=== PATIENT | male | born 1955 | race Caucasian/White ===

== ENCOUNTER 2024-11-15 11:10 | Observation (INO) ==
[2024-11-15] MEDS ORDERED: DILAUDID INJ IVP PRN (14:48)
[2024-11-15 15:31] LABS: BASOPHILS % (AUTO) 0.8 % (0.2-1.0); EOSINOPHILS # (AUTO) 0.2 x10^3/uL (0.0-0.2); EOSINOPHILS % (AUTO) 3.9 % (0.9-2.9); HEMATOCRIT 37.1 % (42.0-54.0); HEMOGLOBIN 12.9 g/dL (13.5-18.0); LYMPHOCYTES # (AUTO) 0.8 X10^3/uL (1.3-2.9); LYMPHOCYTES % (AUTO) 15.6 % (21.0-51.0); MEAN CORPUSCULAR HEMOGLOBIN 29.1 pg (27.0-34.0); MEAN CORPUSCULAR HGB CONC 34.9 g/dL (33.0-35.0); MEAN CORPUSCULAR VOLUME 83.3 fL (80.0-100.0); MEAN PLATELET VOLUME 6.5 fL (7.4-11.0); MONOCYTES # (AUTO) 0.4 x10^3/uL (0.3-0.8); MONOCYTES % (AUTO) 7.3 % (0.0-13.0); NEUTROPHILS # (AUTO) 3.9 x10^3/uL (2.2-4.8); NEUTROPHILS % (AUTO) 72.4 % (42.0-75.0); PLATELET COUNT 211 X10^3/uL (150.0-450.0); RED BLOOD COUNT 4.45 X10^6/uL (4.7-6.0); RED CELL DISTRIBUTION WIDTH 14.7 % (11.6-16.5); WHITE BLOOD COUNT 5.4 X10^3/uL (3.6-10.0)
[2024-11-15 15:37] LABS: ALANINE AMINOTRANSFERASE 31 Units/L (12-78); ALBUMIN 3.6 g/dL (3.4-5.0); ALKALINE PHOSPHATASE 99 Units/L (46-116); ASPARTATE AMINO TRANSFERASE 19 Units/L (15-37); BLOOD UREA NITROGEN 37 mg/dL (7-18); CALCIUM 9.3 mg/dL (8.5-10.1); CARBON DIOXIDE 34.1 mmol/L (21-32); CHLORIDE 100 mmol/L (98-107); COR NA(FOR HYPERGLY) 142 mmol/L (136-145); CREATININE 1.97 mg/dL (0.70-1.30); GLUCOSE 244 mg/dL (65-99); POTASSIUM 3.4 mmol/L (3.5-5.1); SODIUM 139 mmol/L (136-145); TOTAL PROTEIN 7.7 g/dL (6.4-8.2); eGFR NON BLACK RACES 36 (>60)
[2024-11-15] MEDS: LOVENOX INJ 120 MG SYR SC SCH (16:16)
[2024-11-15] MEDS: LR 1,000 ML IV 1,000 ML IV SCH (16:17)
[2024-11-15] MEDS ORDERED: CONSULT PHARMACY - POTASSIUM & MAGNESIUM XX SCH (17:00)
[2024-11-15] MEDS: K-RIDER 10 MEQ/100 ML WATER 10 MEQ/100 ML BAG IV NR (18:40)
[2024-11-15] MEDS: ZOSYN VIAL 3.375 GRAMS 3.375 G in NS 100 ML IV 100 ML IV SCH (18:45)
[2024-11-15] MEDS: SNACK - Diabetic Appropriate PO SCH (21:00)
[2024-11-15] MEDS: NovoLIN R (or HumuLIN R) SUBCUT PRN (21:40)
[2024-11-15] MEDS ORDERED: NovoLIN R (or HumuLIN R) SUBCUT PRN (23:23)
--- NOTE | 2024-11-15 23:23 | DR.H&P ---
H&P History & Physical for Day of: H&P Date: 11/15/24 Chief Complaint Chief Complaint: Obese 69-year-old diabetic with history of coronary bypass grafting within the last several years. Also with history of multiple coronary stents. No history of SC. Patient also has had arterial stenting of the right extremity in the past. Now has nonhealing wound to the left lateral foot, probable diabetic ulcer versus ischemic ulcer. Has had a left small toe amputation. Question of osteomyelitis involving the left foot. History of Present Illness History of Present Illness: See above Past Medical History Past Medical History: Anxiety, Coronary Artery Disease (Status post CABG and multiple coronary stents), Diabetes, Dyslipidemia, GERD and Hypertension Past Surgical History Surgical History: Appendectomy and CABG/Valve Surgery (CABG x 3, multiple coronary stents, stenting of arteries right leg, left small toe ray amputation) Family History Family Medical History: Diabetes Mellitus and Cancer Social History Does patient currently use any type of tobacco product: No Type of Tobacco Use: None Does any household member use tobacco: No Alcohol Use: None Drug Use: None Medications Home Medications: see list Allergies Allergies Allergy/AdvReac Type Severity Reaction Status Date / Time clindamycin [From Cleocin] Allergy Severe RASH Verified 11/15/24 15:01 Labs 11/15/24 15:14 11/15/24 15:14 Labs: Laboratory WBC 5.4 X10^3/uL (3.6-10.0) 11/15/24 15:14 RBC 4.45 X10^6/uL (4.7-6.0) L 11/15/24 15:14 Hgb 12.9 g/dL (13.5-18.0) L 11/15/24 15:14 Hct 37.1 % (42.0-54.0) L 11/15/24 15:14 MCV 83.3 fL (80.0-100.0) 11/15/24 15:14 MCH 29.1 pg (27.0-34.0) 11/15/24 15:14 MCHC 34.9 g/dL (33.0-35.0) 11/15/24 15:14 RDW 14.7 % (11.6-16.5) 11/15/24 15:14 Plt Count 211 X10^3/uL (150.0-450.0) 11/15/24 15:14 MPV 6.5 fL (7.4-11.0) L 11/15/24 15:14 Neut % (Auto) 72.4 % (42.0-75.0) 11/15/24 15:14 Lymph % (Auto) 15.6 % (21.0-51.0) L 11/15/24 15:14 [place] % (Auto) 7.3 % (0.0-13.0) 11/15/24 15:14 Eos % (Auto) 3.9 % (0.9-2.9) H 11/15/24 15:14 Baso % (Auto) 0.8 % (0.2-1.0) 11/15/24 15:14 Neut # (Auto) 3.9 x10^3/uL (2.2-4.8) 11/15/24 15:14 Lymph # (Auto) 0.8 X10^3/uL (1.3-2.9) L 11/15/24 15:14 [place] # (Auto) 0.4 x10^3/uL (0.3-0.8) 11/15/24 15:14 Eos # (Auto) 0.2 x10^3/uL (0.0-0.2) 11/15/24 15:14 Baso # (Auto) 0.0 X10^3/uL (0.0-0.1) 11/15/24 15:14 Absolute Nucleated RBC 0.1 /100WBC 11/15/24 15:14 Sodium 139 mmol/L (136-145) 11/15/24 15:14 Corrected Sodium 142 mmol/L (136-145) 11/15/24 15:14 Potassium 3.4 mmol/L (3.5-5.1) L 11/15/24 15:14 Chloride 100 mmol/L (98-107) 11/15/24 15:14 Carbon Dioxide 34.1 mmol/L (21-32) H 11/15/24 15:14 BUN 37 mg/dL (7-18) H 11/15/24 15:14 Creatinine 1.97 mg/dL (0.70-1.30) H 11/15/24 15:14 Est GFR (MDRD) Af Amer 43 (>60) L 11/15/24 15:14 Est GFR (MDRD) Non-Af 36 (>60) L 11/15/24 15:14 Glucose 244 mg/dL (65-99) H 11/15/24 15:14 Calcium 9.3 mg/dL (8.5-10.1) 11/15/24 15:14 Corrected Calcium TNP 11/15/24 15:14 Magnesium 2.1 mg/dL (2.0-2.9) 11/15/24 15:14 Total Bilirubin 0.40 mg/dL (0.2-1.0) 11/15/24 15:14 AST 19 Units/L (15-37) 11/15/24 15:14 ALT 31 Units/L (12-78) 11/15/24 15:14 Alkaline Phosphatase 99 Units/L (46-116) 11/15/24 15:14 Total Protein 7.7 g/dL (6.4-8.2) 11/15/24 15:14 Albumin 3.6 g/dL (3.4-5.0) 11/15/24 15:14 Globulin 4.1 g/dL (2.5-4.5) 11/15/24 15:14 Albumin/Globulin Ratio 0.9 Ratio (1.1-2.1) L 11/15/24 15:14 Review of Systems Constitutional: See HPI Eyes: No Symptoms Reported ENT: No Symptoms Reported Respiratory: No Symptoms Reported Cardiovascular: No Symptoms Reported Gastrointestinal: No Symptoms Reported Genitourinary: No Symptoms Reported Musculoskeletal: See HPI Skin: No Symptoms Reported Neurological: No Symptoms Reported Physical Exam Vital Signs: Temperature equals 97.4, pulse 83, respiratory rate 18, O2 saturation 93%, blood pressure 139/72 Oriented: Time, Person and Place; negative Normal Eyes: Normal Ear: Normal Nose: Normal Throat: Normal Respiratory: Clear Throughout Cardiovascular: Normal : Normal Auscultation: Bowel Sounds: Normal Palpation: Normal Tenderness: Normal Skin: Wound (3 cm diameter wound to left lateral foot. Has had left small toe amputated in the past base of this is healed. Question of osteomyelitis.) Musculoskeletal: Foot (As above. Significant swelling lower extremity, palpable distal pulses of the right ankle. No palpable distal pulses of the left foot.) Psychiatric: Anxiety Mood Description: Calm Affect: Anxious Speech Pattern: Clear and Appropriate Assessment/Plan (1) Atherosclerosis of [place] arteries of extremities with rest pain, left leg: Status: Acute Plan: Will hydrate tonight as creatinine is elevated. Try to do CT angiogram in the morning. N.p.o. after midnight (2) Atherosclerotic heart disease of [place] coronary artery without angina pectoris: Status: Acute Plan: Home medications (3) Essential (primary) hypertension: Status: Acute Plan: Home medications (4) Gastro-esophageal reflux disease without esophagitis: Status: Acute Plan: Home medications (5) Type 2 diabetes mellitus without complications: Status: Acute Plan: 1800-calorie ADA diet, sliding scale insulin. N.p.o. after midnight (6) Osteomyelitis of left foot: Status: Acute Plan: Opal Polisher ordered MRI of the left foot for tomorrow morning Review H&P Reviewed: Yes Patient was examined?: Yes
[2024-11-15] MEDS ORDERED: ZOFRAN TAB 4 MG PO PRN (23:27)
--- NOTE | 2024-11-16 06:16 | RAD ---
EXAM: CHEST, 1 VIEW HISTORY: Pre-op ischemic left leg with non-healing wound; COMPARISON: None FINDINGS: The cardiomediastinal silhouette is prominent. Post sternotomy changes. Hypoventilatory exam without acute airspace disease. No pneumothorax or effusion. No acute osseous abnormality. IMPRESSION: No acute cardiopulmonary disease. THIS IS AN ELECTRONICALLY VERIFIED FINAL REPORT 11/16/2024 6:13 AM - Electronically signed by Andrew Christy MD
[2024-11-16] MEDS ORDERED: CONSULT PHARMACY - POTASSIUM & MAGNESIUM XX SCH (08:00)
[2024-11-16 08:42] LABS: CALCIUM 9.2 mg/dL (8.5-10.1); CREATININE 1.61 mg/dL (0.70-1.30); POTASSIUM 3.7 mmol/L (3.5-5.1)
[2024-11-16] MEDS: NORVASC TAB 5 MG PO SCH (09:56)
[2024-11-16] MEDS: KLONOPIN TAB 0.5 MG PO SCH (09:56)
[2024-11-16] MEDS: LOVENOX INJ 120 MG SYR SC SCH (09:56)
[2024-11-16] MEDS: K-RIDER 10 MEQ/100 ML WATER 10 MEQ/100 ML BAG IV ONE (09:56)
[2024-11-16] MEDS: PROTONIX TAB 40 MG PO SCH (09:57)
--- NOTE | 2024-11-16 12:11 | EKG ---
Test Reason : preop Blood Pressure : */* mmHG Vent. Rate : 86 BPM Atrial Rate : * BPM P-R Int : * ms QRS Dur : 90 ms QT Int : 364 ms P-R-T Axes : * -12 83 degrees QTc Int : 435 ms Accelerated Junctional rhythm Cannot rule out Anterior infarct , age undetermined Nonspecific T wave abnormality Abnormal ECG No previous ECGs available Confirmed by Diallo Aquino MD ([id number]) on 11/16/2024 2:09:41 PM Referred By: Confirmed By: Diallo Aquino MD
[2024-11-16] MEDS: VERSED ONE (12:34)
[2024-11-16] MEDS: FENTANYL VIAL INJ 100 mcg ONE (12:36)
[2024-11-16] MEDS: DIPRIVAN VIAL 20 ML ONE ×2 (12:38→13:51)
[2024-11-16] MEDS: PEPCID 20 MG VIAL ONE (12:39)
[2024-11-16] MEDS: ZOFRAN INJ 4 MG VIAL ONE (12:39)
[2024-11-16] MEDS: HEPARIN SODIUM INJ 5000 UNITS ONE (12:40)
[2024-11-16] MEDS: ANCEF VIAL 1 GRAM ONE (13:13)
[2024-11-16] MEDS: NS 1,000 ML IV 1,000 ML ONE (13:13)
[2024-11-16] MEDS: NS 100 ML IV 100 ML ONE (13:13)
[2024-11-16] MEDS: ZOFRAN INJ 4 MG VIAL IVP PRN (13:20)
[2024-11-16] MEDS: VERSED IVP PRN (13:20)
[2024-11-16] MEDS: PEPCID 20 MG VIAL IVP PRN (13:20)
[2024-11-16] MEDS ORDERED: PRECEDEX INJ VIAL ONE (13:26)
[2024-11-16] MEDS: NS 1,000 ML IV 500 ML IV PRN (13:26)
[2024-11-16] MEDS ORDERED: KETAMINE HCL ONE (13:26)
[2024-11-16] MEDS: ANCEF VIAL 1 GRAM IV PRN (13:27)
[2024-11-16] MEDS: PRECEDEX INJ VIAL IVP PRN (13:32)
[2024-11-16] MEDS: KETAMINE HCL IV PRN (13:32)
[2024-11-16] MEDS: DIPRIVAN IVP PRN (13:32)
[2024-11-16] MEDS: VISIPAQUE 100 ML ONE (13:43)
[2024-11-16] MEDS: VISIPAQUE 50 ML ONE (13:43)
[2024-11-16] MEDS: HEPARIN 1,000 UNIT/500 ML-NS 3,000 UNIT/1,500 ML IV.SOLN ONE (13:43)
[2024-11-16] MEDS: MARCAINE 0.5% ONE (13:43)
[2024-11-16] MEDS ORDERED: HEPARIN SODIUM INJ 5000 UNITS IVP PRN (13:44)
[2024-11-16] MEDS: NS 500 ML IV 500 ML IV ONE (13:58)
[2024-11-16] MEDS: TORADOL 30 MG VIAL ONE (14:09)
[2024-11-16] MEDS: FENTANYL VIAL INJ 100 mcg IVP PRN (14:10)
[2024-11-16] MEDS: TORADOL 30 MG VIAL IVP PRN (14:10)
--- NOTE | 2024-11-16 14:24 | OR.IMMED ---
IMMEDIATE POST-OP NOTE Immediate Post-Op Note Date of surgery/procedure: 11/16/24 Pre-Op Diagnosis: Critical ischemia left leg with nonhealing wound to the lateral left foot question of osteomyelitis lateral left foot Post-Op Diagnosis: Same, see findings Procedure: Aortogram, arteriogram left leg, atherectomy and angioplasty of the left anterior tibial artery Description of Procedure: Dictate Surgeon/Patient Monitor: Villa Braga MD, FACS Findings: Occluded left anterior tibial are after its takeoff with reconstitution at the ankle, all of the vessels intact Estimated Blood Loss: 100 cc Complications: None Progress Notes: Return to floor. Patient still needs MRI of the left foot. Dr. Page is planning debridement of the left foot tomorrow.
--- NOTE | 2024-11-16 15:40 | DR.CONSULT ---
CONSULT Consultation for Day of: Date: 11/16/24 Chief Complaint Chief Complaint: Left foot wound, chronic in nature Allergies Allergies Allergy/AdvReac Type Severity Reaction Status Date / Time clindamycin [From Cleocin] Allergy Severe RASH Verified 11/15/24 15:01 History of Present Illness History of Present Illness: Mr Greenfield is a 69 year old M with PMH of diabetes, CAD with stents, GERD who was seen in Dr. Page's office as a consult for a chronic wound that has been present on his foot for longer than 3 months. Patient has seen multiple providers with no ability to heal. A vascular review was performed and patient was found to have an occluded AT artery. Dr. Braga was consulted and patient was instructed to be admitted to hospital for MRI to evaluate for osteomyelitis of the left foot as this wound is chronic and nonhealing. Infection is necessary to be ruled out. Also underwent aortogram, arteriogram left leg, atherectomy and angioplasty of the left anterior tibial artery with Dr. Braga today. Podiatry was made aware today that patient had to be admitted. Past Medical History Past Medical History: Anxiety, Coronary Artery Disease (Status post CABG and multiple coronary stents), Diabetes, Dyslipidemia, GERD and Hypertension Past Surgical History Surgical History: Appendectomy and CABG/Valve Surgery (CABG x 3, multiple coronary stents, stenting of arteries right leg, left small toe ray amputation) Family History Family Medical History: Diabetes Mellitus and Cancer Social History Does patient currently use any type of tobacco product: No Type of Tobacco Use: None Does any household member use tobacco: No Alcohol Use: None Drug Use: None Medications Home Medications: clindamycin [From Cleocin] Allergy (Severe, Verified 11/15/24 15:01) RASH CONTINUE taking the following medications amlodipine 5 mg tablet 5 mg PO QAM 11/16/24 [History] clonazepam 0.5 mg tablet 0.5 mg PO QAM 11/16/24 [History] clonazepam 0.5 mg tablet 1 mg PO QHS 11/16/24 [History] clopidogrel 75 mg tablet 75 mg PO QDAY 11/16/24 [History] dicyclomine 20 mg tablet 20 mg PO BID 11/16/24 [History] furosemide 40 mg tablet 40 mg PO BID 11/16/24 [History] insulin aspart (niacinamide)(U-100) 100 unit/mL(3 mL) subcutaneous pen (Fiasp FlexTouch U-100 Insulin) 12 unit subcut TID PRN 11/16/24 [History] insulin glargine 100 unit/mL (3 mL) subcutaneous pen (Basaglar KwikPen U-100 Insulin) 36 unit subcut DAILY 11/16/24 [History] omeprazole 40 mg capsule,delayed release 40 mg PO QDAY 11/16/24 [History] ondansetron 8 mg disintegrating tablet 8 mg PO TID PRN 11/16/24 [History] pramipexole 1 mg tablet 1 mg PO QHS 11/16/24 [History] semaglutide 1 mg/dose (4 mg/3 mL) subcutaneous pen injector (Ozempic) 1 mg subcut WEEKLY 11/16/24 [History] sulfamethoxazole 800 mg-trimethoprim 160 mg tablet 1 tab PO BID 11/16/24 [History] tamsulosin 0.4 mg capsule 0.4 mg PO QHS 11/16/24 [History] Review of Systems Constitutional: See HPI Skin: Other (Chronic wound, left foot) Physical Exam Vital Signs: Vital Signs Temperature 98.1 F Temperature 98.0 F Temperature 98.2 F Pulse Rate [Right Brachial] 84 Pulse Rate [Right Brachial] 95 Pulse Rate 86 Respiratory Rate 18 Respiratory Rate 20 Respiratory Rate 19 Blood Pressure [Right Arm] 153/78 Blood Pressure [Right Arm] 170/88 Blood Pressure 170/94 O2 Sat by Pulse Oximetry 92 O2 Sat by Pulse Oximetry 93 Oriented: Normal Cardiovascular: Other (Left foot: Non palpable DP and PT pulses. CFT WNL to digits 1-4. Atrophic skin changes. 3 vessel runoff has been re-established by Dr. Braga. ) Skin: Wound (Left foot: Wound to plantar fifth metatarsal base measuring 2 cm circumferential with a fibrotic base. No undermining. No tunneling. Does not probe to bone. No surrounding erythema. Osteo has to be ruled out due to chronic nature of wound. ) Musculoskeletal: Left and Foot (Achilles contracture noted. 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 ) Plan (1) Atherosclerosis of [place] arteries of extremities with rest pain, left leg: Status: Acute Plan: - Underwent Aortogram, arteriogram left leg, atherectomy and angioplasty of the left anterior tibial artery by Dr. Braga. Per Mahamed's note has 3 vessell runoff in left foot and is ready for surgery by Dr. Page (2) Atherosclerotic heart disease of [place] coronary artery without angina pectoris: Status: Acute (3) Essential (primary) hypertension: Status: Acute (4) Gastro-esophageal reflux disease without esophagitis: Status: Acute (5) Type 2 diabetes mellitus without complications: Status: Acute (6) Osteomyelitis of left foot: Status: Acute Plan: - Due to the chronic nature of the wound. It is medically necessary to rule out osteomyelitis as this wound has been present for greater than 3 months and he had infection in left foot before and had a previous toe amputation and partial 5th metatarsal resection of the left foot. - Xrays must be obtained prior to MRI for insurance purposes. These were ordered by CM. - Will review MRI, once obtained. - 3 vessell runoff per mahamed. - On 1800 calorie diet. - On Zosyn Q8hr due to chronic nonhealing wound with prior history of osteomyelitis. - Discussed with patient at bedside today that he will go to OR tomorrow for debridement of wound with placement of antibiotic beads, possible achilles lengthening to correct the ankle contracture as well as application of external fixator to correct the contracture and also midfoot osteotomy to correct the underlying adducted and varus forefoot and the application of the external fixator will control the contracture and hold the correction of osteotomy to correct the midfoot and place his foot back into a rectus position. He will be in the ex fix for an extended period of times. - NPO after midnight order placed.
[2024-11-16] MEDS ORDERED: SNACK - Diabetic Appropriate PO SCH (20:00)
--- NOTE | 2024-11-16 20:02 | RAD ---
EXAM:LOWER LEG, TIB/FIB LEFT two-viewHISTORY:OSTEOMYLITIS;COMPARISON: NoneFINDINGS:No acute fracture or dislocation. Degenerative changes in the knee. No acute soft tissue abnormality.IMPRESSION:No acute fracture or dislocation.THIS IS AN ELECTRONICALLY VERIFIED FINAL REPORT11/16/2024 7:59 PM - Electronically signed by Andrew Christy MD
[2024-11-16] MEDS ORDERED: KLONOPIN TAB 1 MG PO SCH (21:00)
[2024-11-16] MEDS: MIRAPEX TAB 1 MG PO SCH (21:23)
[2024-11-16] MEDS: PERCOCET TAB 5/325 MG PO PRN (21:25)
[2024-11-16] MEDS: HIBICLENS WASH EXT ONE (21:27)
[2024-11-17 04:44] VITALS: BMI 35.8
[2024-11-17 05:50] LABS: BASOPHILS % (AUTO) 0.7 % (0.2-1.0); EOSINOPHILS # (AUTO) 0.4 x10^3/uL (0.0-0.2); EOSINOPHILS % (AUTO) 5.6 % (0.9-2.9); HEMATOCRIT 38.1 % (42.0-54.0); LYMPHOCYTES # (AUTO) 0.7 X10^3/uL (1.3-2.9); MEAN CORPUSCULAR HEMOGLOBIN 28.7 pg (27.0-34.0); MEAN CORPUSCULAR HGB CONC 34.2 g/dL (33.0-35.0); MEAN CORPUSCULAR VOLUME 83.9 fL (80.0-100.0); MEAN PLATELET VOLUME 6.5 fL (7.4-11.0); MONOCYTES # (AUTO) 0.4 x10^3/uL (0.3-0.8); MONOCYTES % (AUTO) 5.7 % (0.0-13.0); PLATELET COUNT 226 X10^3/uL (150.0-450.0); RED BLOOD COUNT 4.54 X10^6/uL (4.7-6.0); RED CELL DISTRIBUTION WIDTH 14.8 % (11.6-16.5); WHITE BLOOD COUNT 6.5 X10^3/uL (3.6-10.0)
[2024-11-17 06:02] LABS: ALANINE AMINOTRANSFERASE 26 Units/L (12-78); ALBUMIN 3.3 g/dL (3.4-5.0); ALKALINE PHOSPHATASE 90 Units/L (46-116); ASPARTATE AMINO TRANSFERASE 17 Units/L (15-37); BLOOD UREA NITROGEN 18 mg/dL (7-18); CALCIUM 8.9 mg/dL (8.5-10.1); CARBON DIOXIDE 31.9 mmol/L (21-32); CHLORIDE 103 mmol/L (98-107); COR CA(FOR HYPOALB) 9.5 mg/dL (8.5-10.1); COR NA(FOR HYPERGLY) 142 mmol/L (136-145); CREATININE 1.46 mg/dL (0.70-1.30); GLUCOSE 114 mg/dL (65-99); MAGNESIUM 1.9 mg/dL (2.0-2.9); POTASSIUM 3.6 mmol/L (3.5-5.1); SODIUM 142 mmol/L (136-145); TOTAL PROTEIN 7.4 g/dL (6.4-8.2); eGFR NON BLACK RACES 51 (>60)
[2024-11-17] MEDS: ASPIRIN EC 81 MG PO SCH (08:04)
[2024-11-17] MEDS: FENTANYL VIAL INJ 100 mcg ONE (09:36)
[2024-11-17] MEDS: VERSED ONE (09:36)
[2024-11-17] MEDS: ZOFRAN INJ 4 MG VIAL ONE (09:37)
[2024-11-17] MEDS: OFIRMEV IV 1000 MG VIAL 1,000 MG/100 ML VIAL IV ONE (09:37)
[2024-11-17] MEDS: REGLAN INJ 10 MG VIAL ONE (09:37)
[2024-11-17] MEDS: PEPCID 20 MG VIAL ONE (09:37)
[2024-11-17] MEDS: DIPRIVAN VIAL 20 ML ONE (09:37)
[2024-11-17] MEDS ORDERED: ZOFRAN INJ 4 MG VIAL IVP PRN (09:45)
[2024-11-17] MEDS ORDERED: BENADRYL INJ 50 MG VIAL IVP PRN (09:45)
[2024-11-17] MEDS: NS 1,000 ML IV 600 ML IV PRN (10:00)
[2024-11-17] MEDS: VERSED IVP PRN (10:06)
[2024-11-17] MEDS: ZOFRAN INJ 4 MG VIAL IVP PRN (10:07)
[2024-11-17] MEDS: PEPCID 20 MG VIAL IVP PRN (10:09)
[2024-11-17] MEDS: REGLAN INJ 10 MG VIAL IVP PRN (10:12)
[2024-11-17] MEDS: ROBINUL ONE (10:17)
[2024-11-17] MEDS: BENADRYL INJ 50 MG VIAL ONE (10:17)
[2024-11-17] MEDS ORDERED: KETAMINE HCL ONE (10:28)
[2024-11-17] MEDS ORDERED: PRECEDEX INJ VIAL ONE (10:28)
[2024-11-17] MEDS ORDERED: ULTANE GAS IN ONE (10:28)
[2024-11-17] MEDS: NS 1,000 ML IV 1,000 ML ONE (10:28)
[2024-11-17] MEDS ORDERED: XYLOCAINE 2 % (PLAIN) ONE (10:28)
[2024-11-17] MEDS: ROBINUL IVP PRN (10:30)
[2024-11-17] MEDS: BENADRYL INJ 50 MG VIAL IVP PRN (10:31)
[2024-11-17] MEDS: FENTANYL VIAL INJ 100 mcg IVP PRN (10:33)
[2024-11-17] MEDS: XYLOCAINE 2 % (PLAIN) INJ PRN (10:34)
[2024-11-17] MEDS: ANCEF VIAL 1 GRAM ONE (10:43)
[2024-11-17] MEDS: ANCEF VIAL 1 GRAM IV PRN (10:45)
[2024-11-17] MEDS: TOBRAMYCIN SULFATE ONE (10:46)
[2024-11-17] MEDS: MARCAINE 0.25% INJ ONE (10:46)
[2024-11-17] MEDS: VANCOMYCIN HCL ONE (10:46)
[2024-11-17] MEDS: KETAMINE HCL IV PRN (10:49)
[2024-11-17] MEDS: EPHEDRINE SULFATE INJ ONE (11:00)
[2024-11-17] MEDS: DIPRIVAN VIAL 200 ML IVP PRN (11:02)
[2024-11-17] MEDS: OFIRMEV IV 1000 MG VIAL 1,000 MG/100 ML VIAL IV PRN (11:05)
[2024-11-17] MEDS: DECADRON INJ ONE (11:06)
[2024-11-17] MEDS: DECADRON INJ IVP PRN (11:08)
[2024-11-17] MEDS: EPHEDRINE SULFATE INJ IVP PRN (11:14)
[2024-11-17] MEDS: TORADOL 30 MG VIAL ONE (11:23)
[2024-11-17] MEDS: TORADOL 30 MG VIAL IVP PRN (11:24)
[2024-11-17] MEDS: PRECEDEX INJ VIAL IVP PRN (11:32)
[2024-11-17] MEDS ORDERED: DILAUDID INJ ONE (11:41)
[2024-11-17] MEDS: DILAUDID INJ IVP PRN (11:43)
--- NOTE | 2024-11-17 16:07 | DR.OPNOTE ---
OP NOTE Pre-Op Diagnosis: Nonhealing wound to the left lateral foot, critical ischemia in the angiogr Post-Op Diagnosis: same Procedure Date Date Of Procedure: 11/16/24 Procedure: PROCEDURE: Diagnostic aortogram, diagnostic arteriogram left leg, atherectomy and balloon angioplasty of the left anterior tibial artery NARRATIVE: The patient was taken to the operative suite and placed in the supine position. The right groin and entire left leg were prepped and draped in sterile fashion. Patient was given intravenous sedation supervised by myself. Timeout for the procedure obtained. Ultrasound used to identify the femoral artery in the right groin and the skin overlying it infiltrated with 0.5% Marcaine. Ultrasound used to guide puncture of the right femoral artery and a 0.012 inch guidewire placed. Incision made over the guidewire at the skin edge with a #11 knife blade and the micro sheath placed over the guidewire into the femoral artery. Small wire exchanged for a 0.035 inch Advantage Glidewire and the micro sheath exchanged for a 5 [place] vascular sheath. Patient given 5000 units of intravenous heparin. Omni catheter placed over the guidewire into the aorta and power injector used to perform aortogram showing normal aorta and iliac arteries . The Omni catheter was then used to direct the guidewire down the left common iliac artery to the distal left external iliac artery. The Omni catheter exchanged for a [place] catheter and sequential arteriograms perfprmed of the left leg showing normal superficial femoral artery, normal popliteal artery, normal peroneal and posterior tibial arteries. The anterior tibial ar [place] was occluded completely after its takeoff and reconstituted distally at the ankle.. The Swanton catheter removed and over the guidewire the 5 [place] sheath was exchanged for a 7 [place] Catpult Sheath which was parked left popliteal artery. Swanton catheter and the 0.035 guidewire used to traverse the arteries of the left leg ultimately ending in left anterior tibial artery all the way to the foot. Swanton catheter used to exchange 0.035 inch wire for a 0.014 inch Thruway wire. AngioJet device was loaded over the wire and we performed atherectomy of the proximal and midportion of the left anterior tibial artery. This removed and replaced a coyote 3 mm x 2020 mm balloon used angioplasty of the entire left intertibial artery. This took two inflations . After arterial intervention follow-up arteriogram performed showing excellent outcome. Wires and devices removed from the Catapult sheath. This sheath pulled back into the aorta and a 0.035 guidewire placed. Catapult sheath exchanged over the wire for a Angio-Seal device used to close the puncture of the right femoral artery. Patient taken to same-day surgery in good condition. Type of Anesthesia: Local (0.5% Marcaine) Anesthesia Comment: plus MAC Findings: Complete occlusion of the proximal left anterior tibial artery with reconstitution distally. Other vessels are normal. Type of Fluids Used:: Lactated Ringers (500cc) Urine output: 400cc EBL: 100cc Complications:: none Needle/Sponge Count:: correct Disposition/Condition: Pt. tolerated procedure without difficulty. Taken to the floor in stable condition.
--- NOTE | 2024-11-17 22:29 | NOTE.SOAP ---
Soap Note Note for Day of Date of Exam: 11/17/24 Subjective Data Subjective Data: Postoperative day 1 after revascularization of the left leg with atherectomy and balloon angioplasty of left anterior tibial artery which was occluded. Patient was supposed to have a debridement of the left foot wound by Dr. Eisenberg but that has not occurred yet. MRI still pending. Patient examined by me last night with warm left foot and good Doppler signal in the foot. Objective Data Temperature: 98.2 F Pulse Rate: 105 Respiratory Rate: 19 Blood Pressure: 152/73 O2 Sat by Pulse Oximetry: 92 Objective Data: Warm left foot. Puncture site in the right groin without bleeding or hematoma Hemoglobin 13.0, creatinine 1.4 Assessment Assessment: Poorly healing wound to the left lateral foot, probable diabetic ulcer question of osteomyelitis. Status post revascularization Plan Plan: Continue antibiotics. Await surgical intervention by podiatry
[2024-11-17] MEDS: NS 250 ML IV 25 ML IV PRN (22:55)
[2024-11-17 23:49] VITALS: O2SAT 96
[2024-11-18 05:35] LABS: BASOPHILS % (AUTO) 0.3 % (0.2-1.0); HEMATOCRIT 35.3 % (42.0-54.0); HEMOGLOBIN 12.3 g/dL (13.5-18.0); LYMPHOCYTES # (AUTO) 0.5 X10^3/uL (1.3-2.9); LYMPHOCYTES % (AUTO) 6.6 % (21.0-51.0); MEAN CORPUSCULAR HEMOGLOBIN 29.1 pg (27.0-34.0); MEAN CORPUSCULAR HGB CONC 34.9 g/dL (33.0-35.0); MEAN CORPUSCULAR VOLUME 83.2 fL (80.0-100.0); MEAN PLATELET VOLUME 6.3 fL (7.4-11.0); MONOCYTES # (AUTO) 0.3 x10^3/uL (0.3-0.8); MONOCYTES % (AUTO) 4.2 % (0.0-13.0); NEUTROPHILS # (AUTO) 6.8 x10^3/uL (2.2-4.8); NEUTROPHILS % (AUTO) 88.9 % (42.0-75.0); PLATELET COUNT 234 X10^3/uL (150.0-450.0); RED BLOOD COUNT 4.25 X10^6/uL (4.7-6.0); RED CELL DISTRIBUTION WIDTH 14.7 % (11.6-16.5); WHITE BLOOD COUNT 7.6 X10^3/uL (3.6-10.0)
[2024-11-18 05:48] LABS: ALANINE AMINOTRANSFERASE 20 Units/L (12-78); ALBUMIN 3.5 g/dL (3.4-5.0); ALKALINE PHOSPHATASE 87 Units/L (46-116); ASPARTATE AMINO TRANSFERASE 14 Units/L (15-37); BLOOD UREA NITROGEN 23 mg/dL (7-18); CALCIUM 8.8 mg/dL (8.5-10.1); CARBON DIOXIDE 29.5 mmol/L (21-32); CHLORIDE 102 mmol/L (98-107); COR NA(FOR HYPERGLY) 143 mmol/L (136-145); CREATININE 1.73 mg/dL (0.70-1.30); GLUCOSE 241 mg/dL (65-99); POTASSIUM 3.8 mmol/L (3.5-5.1); SODIUM 140 mmol/L (136-145); TOTAL PROTEIN 7.5 g/dL (6.4-8.2); eGFR NON BLACK RACES 42 (>60)
[2024-11-18] MEDS ORDERED: CONSULT PHARMACY - POTASSIUM & MAGNESIUM XX SCH (07:00)
[2024-11-18 07:34] VITALS: BP 175/98; PULSE 94; RESP 20; TEMP 98.1
[2024-11-18] MEDS: K-DUR TAB 20 MEQ PO SCH (08:25)
[2024-11-18] MEDS ORDERED: BETADINE SOLN ONE (09:18)
--- NOTE | 2024-11-18 10:50 | NOTE.SOAP ---
Soap Note Note for Day of Date of Exam: 11/18/24 Subjective Data Subjective Data: Patient is POD#1 debridement fifth metatarsal for osteomyelitis with placement of antibiotic elluding device and debridement of wound, left foot. Received call from nursing this am that patient has severely saturated his dressing multiple times. He is on Lovenox [address] Braga Objective Data Objective Data: Left Lower extremity exam: Upon entering the room the dressing was severely soaked and a pool of sanguinous drainage was noted on the bottom of the heel. Dressing was taken down. I was highly concern for underlying hematoma. I did pop the central stitch and expressed about 5 ccs of sanguinous drainage. I did probe around to scoop out any hematoma formation. I then mixed up topical thrombin epitaxis in the appropriate manner and placed it on an filter tube with the syringe and squirted this into the surgical site. Then I held pressure for a couple minutes. Upon removal of pressure there was no continued sanguinous drainage noted. I then loosely reapproximate the edges with a 3-0 Nylon. I did not need local infiltration as patient has pretty severe neuropathy. I wanted the edges to reapproximate in attempt he will not have a wound but loose enough to allow for drainage of any sanguinous fluid and hematoma. I then applied a compressive dressing of betadine with 4x4s, ABD, Webroll and RUTH. I did place a 4x4 on anterior ankle to prevent anterior ankle wound formation. I discussed my findings with the patient and hsi . I believe the oozing and saturation of his dressing is from his Lovenox and the dosage he is on. I instructed the patient to take it easy over the next couple days. He is allowed to be weight bearing but I reiterated the more weight bearing he performs the higher chance he will bleed through his dressing. No signs or symptoms concerning for DVT or PE. Assessment Assessment: POD#1 wound debridement, debridement fifth metatarsal for osteomyelitis, and placement of antibiotic elluding device, left foot Plan Plan: - See exam above for the control of the sanguinous drainage. Believe this is secondary to his Lovenox and the dosage. Should stop once he is switched off the lovenox. I discussed this with the patient and Dr. Braga. - I placed Rx in chart for Cipro 500mg BID for 5 days. I also placed Rx in chart for pain medication. - Patient needs new surgical shoe for at home. - We will follow cultures and path reports. - He should follow-up with us next week. - Okay for discharge once evaluated by Dr. Braga.
--- NOTE | 2024-11-18 11:03 | W.DIS.FURT ---
Summary of Discharge Discharge Summary of Date Date of Exam: 11/18/24 Admission Date Date of Admission: 11/15/24 Admission Diagnosis Hospital Course: This is a 69-year-old with history of diabetes who has had left fifth toe ray amputation in the past. He presented with nonhealing wound to the lateral left foot. Creatinine was too high for CT angiogram therefore he underwent on table arteriogram showing complete occlusion of the takeoff of the left anterior tibial artery which was the angiosome involved. There was reconstitution of the distal anterior tibial artery. He underwent atherectomy and balloon angioplasty of this. He was taken to the operating suite yesterday where he underwent debridement of the osteomyelitis of the left foot with placement of antibiotic beads. He is to be discharged home today on p.o. antibiotics and p.o. pain medication. He will follow-up with podiatry in 1 week. I will see him in 2 weeks. Vital Signs: Vital Signs (72 hours) 11/17/24 22:29 11/15/24 14:30 11/15/24 15:20 Temperature 98.2 F 97.4 F L Pulse Rate 105 H Pulse Rate [Right Brachial] 83 Respiratory Rate 19 18 Blood Pressure 152/73 Blood Pressure [Right Arm] 139/72 O2 Sat by Pulse Oximetry 92 L 93 L Oxygen Delivery Method Room Air Room Air Oxygen Flow Rate FIO2% 11/15/24 20:00 11/16/24 00:00 11/16/24 04:00 Temperature 98.4 F 97.9 F 97.6 F Pulse Rate Pulse Rate [Right Brachial] 86 85 95 H Respiratory Rate 20 16 20 Blood Pressure Blood Pressure [Right Arm] 100/82 173/81 172/82 O2 Sat by Pulse Oximetry 93 L 92 L 93 L Oxygen Delivery Method Room Air Room Air Room Air Oxygen Flow Rate FIO2% 11/16/24 08:00 11/16/24 07:00 11/16/24 11:55 Temperature 98.2 F 98.0 F Pulse Rate Pulse Rate [Right Brachial] 95 H 84 Respiratory Rate 19 20 Blood Pressure Blood Pressure [Right Arm] 170/88 153/78 O2 Sat by Pulse Oximetry 93 L 92 L Oxygen Delivery Method Room Air Room Air Room Air Oxygen Flow Rate FIO2% 11/16/24 13:21 11/16/24 14:30 11/16/24 14:45 Temperature 98.1 F 97.5 F L 97.5 F L Pulse Rate 86 Pulse Rate [Right Brachial] 80 80 Respiratory Rate 18 18 18 Blood Pressure 170/94 Blood Pressure [Right Arm] 147/79 171/86 O2 Sat by Pulse Oximetry 95 98 Oxygen Delivery Method Room Air Nasal Cannula Nasal Cannula Oxygen Flow Rate 2 2 FIO2% 11/16/24 15:00 11/16/24 15:15 11/16/24 15:30 Temperature 97.4 F L 97.4 F L 97.4 F L Pulse Rate Pulse Rate [Right Brachial] 81 83 76 Respiratory Rate 19 18 18 Blood Pressure Blood Pressure [Right Arm] 150/90 153/92 158/93 O2 Sat by Pulse Oximetry 97 100 96 Oxygen Delivery Method Nasal Cannula Nasal Cannula Nasal Cannula Oxygen Flow Rate 2 2 2 FIO2% 11/16/24 16:30 11/16/24 18:29 11/16/24 21:25 Temperature 97.0 F L 97.4 F L Pulse Rate Pulse Rate [Right Brachial] 76 79 Respiratory Rate 18 18 16 Blood Pressure Blood Pressure [Right Arm] 156/78 165/85 O2 Sat by Pulse Oximetry 98 97 Oxygen Delivery Method Nasal Cannula Nasal Cannula Oxygen Flow Rate 2 2 FIO2% 11/16/24 20:55 11/16/24 19:00 11/16/24 19:30 Temperature 97.7 F Pulse Rate Pulse Rate [Right Brachial] 77 Respiratory Rate 16 Blood Pressure Blood Pressure [Right Arm] 170/88 O2 Sat by Pulse Oximetry 97 Oxygen Delivery Method Nasal Cannula Room Air Nasal Cannula Oxygen Flow Rate 2 2 FIO2% 28 11/16/24 22:25 11/17/24 00:00 11/17/24 04:00 Temperature 97.8 F 97.8 F Pulse Rate Pulse Rate [Right Brachial] 79 86 Respiratory Rate 16 16 16 Blood Pressure Blood Pressure [Right Arm] 174/88 145/82 O2 Sat by Pulse Oximetry 98 99 Oxygen Delivery Method Nasal Cannula Nasal Cannula Oxygen Flow Rate 2 2 FIO2% 11/17/24 07:29 11/17/24 07:00 11/17/24 08:56 Temperature 98.3 F Pulse Rate Pulse Rate [Right Brachial] 86 Respiratory Rate 19 Blood Pressure Blood Pressure [Right Arm] 159/79 O2 Sat by Pulse Oximetry 99 Oxygen Delivery Method Room Air Nasal Cannula Oxygen Flow Rate 2 FIO2% 28 11/17/24 09:57 11/17/24 11:43 11/17/24 11:49 Temperature Pulse Rate 86 Pulse Rate [Right Brachial] Respiratory Rate 18 16 16 Blood Pressure 128/51 Blood Pressure [Right Arm] O2 Sat by Pulse Oximetry 94 L Oxygen Delivery Method Room Air Oxygen Flow Rate FIO2% 11/17/24 11:30 11/17/24 11:35 11/17/24 11:50 Temperature 97.0 F L Pulse Rate 101 H 98 H 93 H Pulse Rate [Right Brachial] Respiratory Rate 18 18 17 Blood Pressure 166/83 177/86 169/83 Blood Pressure [Right Arm] O2 Sat by Pulse Oximetry 94 L 98 99 Oxygen Delivery Method Aerosol Face Tent Aerosol Face Tent Nasal Cannula Oxygen Flow Rate FIO2% 11/17/24 11:55 11/17/24 11:40 11/17/24 11:45 Temperature Pulse Rate 92 H 97 H 97 H Pulse Rate [Right Brachial] Respiratory Rate 16 17 17 Blood Pressure 167/83 176/86 178/87 Blood Pressure [Right Arm] O2 Sat by Pulse Oximetry 99 100 100 Oxygen Delivery Method Nasal Cannula Aerosol Face Tent Nasal Cannula Oxygen Flow Rate FIO2% 11/17/24 12:00 11/17/24 12:19 11/17/24 12:15 Temperature 97.6 F 97.3 F L Pulse Rate 93 H Pulse Rate [Right Brachial] 99 H Respiratory Rate 16 16 20 Blood Pressure 165/80 Blood Pressure [Right Arm] 164/84 O2 Sat by Pulse Oximetry 99 95 Oxygen Delivery Method Nasal Cannula Nasal Cannula Oxygen Flow Rate 2 FIO2% 11/17/24 12:30 11/17/24 12:45 11/17/24 13:00 Temperature 97.4 F L 97.4 F L 97.5 F L Pulse Rate Pulse Rate [Right Brachial] 77 80 83 Respiratory Rate 18 21 19 Blood Pressure Blood Pressure [Right Arm] 176/87 167/87 164/97 O2 Sat by Pulse Oximetry 97 98 99 Oxygen Delivery Method Nasal Cannula Nasal Cannula Nasal Cannula Oxygen Flow Rate 2 2 2 FIO2% 11/17/24 13:15 11/17/24 14:15 11/17/24 15:15 Temperature 97.7 F 97.7 F 97.5 F L Pulse Rate Pulse Rate [Right Brachial] 76 88 86 Respiratory Rate 17 18 20 Blood Pressure Blood Pressure [Right Arm] 160/80 162/80 166/82 O2 Sat by Pulse Oximetry 97 95 96 Oxygen Delivery Method Room Air Room Air Room Air Oxygen Flow Rate FIO2% 03/19/25 16:15 11/17/24 17:15 11/17/24 19:00 Temperature 98 F 97.8 F Pulse Rate Pulse Rate [Right Brachial] 89 83 Respiratory Rate 21 20 Blood Pressure Blood Pressure [Right Arm] 174/85 169/86 O2 Sat by Pulse Oximetry 97 96 Oxygen Delivery Method Room Air Room Air Room Air Oxygen Flow Rate FIO2% 11/17/24 19:38 11/17/24 20:19 11/17/24 20:19 Temperature 98.2 F Pulse Rate 105 H Pulse Rate [Right Brachial] 101 H Respiratory Rate 19 Blood Pressure Blood Pressure [Right Arm] 152/73 O2 Sat by Pulse Oximetry 90 L 92 L Oxygen Delivery Method Room Air Nasal Cannula Oxygen Flow Rate 2 FIO2% 28 11/17/24 23:48 11/18/24 04:00 11/18/24 07:00 Temperature 98.2 F 98.3 F Pulse Rate Pulse Rate [Right Brachial] 98 H 96 H Respiratory Rate 18 18 Blood Pressure Blood Pressure [Right Arm] 174/79 177/86 O2 Sat by Pulse Oximetry 96 96 Oxygen Delivery Method Room Air Room Air Room Air Oxygen Flow Rate FIO2% 11/18/24 07:29 Temperature 98.1 F Pulse Rate Pulse Rate [Right Brachial] 94 H Respiratory Rate 20 Blood Pressure Blood Pressure [Right Arm] 175/98 O2 Sat by Pulse Oximetry 96 Oxygen Delivery Method Room Air Oxygen Flow Rate FIO2% Labs: Laboratory Last Values WBC 7.6 X10^3/uL (3.6-10.0) 11/18/24 05:19 RBC 4.25 X10^6/uL (4.7-6.0) L 11/18/24 05:19 Hgb 12.3 g/dL (13.5-18.0) L 11/18/24 05:19 Hct 35.3 % (42.0-54.0) L 11/18/24 05:19 MCV 83.2 fL (80.0-100.0) 11/18/24 05:19 MCH 29.1 pg (27.0-34.0) 11/18/24 05:19 MCHC 34.9 g/dL (33.0-35.0) 11/18/24 05:19 RDW 14.7 % (11.6-16.5) 11/18/24 05:19 Plt Count 234 X10^3/uL (150.0-450.0) 11/18/24 05:19 MPV 6.3 fL (7.4-11.0) L 11/18/24 05:19 Neut % (Auto) 88.9 % (42.0-75.0) H 11/18/24 05:19 Lymph % (Auto) 6.6 % (21.0-51.0) L 11/18/24 05:19 [place] % (Auto) 4.2 % (0.0-13.0) 11/18/24 05:19 Eos % (Auto) 0.0 % (0.9-2.9) L 11/18/24 05:19 Baso % (Auto) 0.3 % (0.2-1.0) 11/18/24 05:19 Neut # (Auto) 6.8 x10^3/uL (2.2-4.8) H 11/18/24 05:19 Lymph # (Auto) 0.5 X10^3/uL (1.3-2.9) L 11/18/24 05:19 [place] # (Auto) 0.3 x10^3/uL (0.3-0.8) 11/18/24 05:19 Eos # (Auto) 0.0 x10^3/uL (0.0-0.2) 11/18/24 05:19 Baso # (Auto) 0.0 X10^3/uL (0.0-0.1) 11/18/24 05:19 Absolute Nucleated RBC 0.0 /100WBC 11/18/24 05:19 Sodium 140 mmol/L (136-145) 11/18/24 05:19 Corrected Sodium 143 mmol/L (136-145) 11/18/24 05:19 Potassium 3.8 mmol/L (3.5-5.1) 11/18/24 05:19 Chloride 102 mmol/L (98-107) 11/18/24 05:19 Carbon Dioxide 29.5 mmol/L (21-32) 11/18/24 05:19 BUN 23 mg/dL (7-18) H 11/18/24 05:19 Creatinine 1.73 mg/dL (0.70-1.30) H 11/18/24 05:19 Est GFR (MDRD) Af Amer 50 (>60) L 11/18/24 05:19 Est GFR (MDRD) Non-Af 42 (>60) L 11/18/24 05:19 Glucose 241 mg/dL (65-99) H 11/18/24 05:19 POC Glucose (mg/dL) 235 mg/dL (65-99) H 11/18/24 05:43 Calcium 8.8 mg/dL (8.5-10.1) 11/18/24 05:19 Corrected Calcium TNP 11/18/24 05:19 Magnesium 2.0 mg/dL (2.0-2.9) 11/18/24 05:19 Total Bilirubin 0.40 mg/dL (0.2-1.0) 11/18/24 05:19 AST 14 Units/L (15-37) L 11/18/24 05:19 ALT 20 Units/L (12-78) 11/18/24 05:19 Alkaline Phosphatase 87 Units/L (46-116) 11/18/24 05:19 Total Protein 7.5 g/dL (6.4-8.2) 11/18/24 05:19 Albumin 3.5 g/dL (3.4-5.0) 11/18/24 05:19 Globulin 4.0 g/dL (2.5-4.5) 11/18/24 05:19 Albumin/Globulin Ratio 0.9 Ratio (1.1-2.1) L 11/18/24 05:19 Pathology Result To follow 11/17/24 11:11 Reason For Visit: ISCHEMIA TO LEFT LEG Discharge Date Discharge Date: 11/18/24 Discharge Diagnosis All Active Problems (Updated 11/15/24 @ 23:21 by Villa Braga) Osteomyelitis of left foot (Acute) Type 2 diabetes mellitus without complications (Acute) Gastro-esophageal reflux disease without esophagitis (Acute) Essential (primary) hypertension (Acute) Atherosclerotic heart disease of [place] coronary artery without angina pectoris (Acute) Atherosclerosis of [place] arteries of extremities with rest pain, left leg (Acute) Plan of Treatment: Continue with present treatment and follow up plan. Pt is to keep follow up appointment as instructed and take medications as ordered. Discharge Medications Discharge Medications: clindamycin [From Cleocin] Allergy (Severe, Verified 11/15/24 15:01) RASH CONTINUE taking the following medications amlodipine 5 mg tablet 5 mg PO QAM 11/16/24 [History] clonazepam 0.5 mg tablet 0.5 mg PO QAM 11/16/24 [History] clonazepam 0.5 mg tablet 1 mg PO QHS 11/16/24 [History] clopidogrel 75 mg tablet 75 mg PO QDAY 11/16/24 [History] dicyclomine 20 mg tablet 20 mg PO BID 11/16/24 [History] furosemide 40 mg tablet 40 mg PO BID 11/16/24 [History] insulin aspart (niacinamide)(U-100) 100 unit/mL(3 mL) subcutaneous pen (Fiasp FlexTouch U-100 Insulin) 12 unit subcut TID PRN 11/16/24 [History] insulin glargine 100 unit/mL (3 mL) subcutaneous pen (Basaglar KwikPen U-100 Insulin) 36 unit subcut DAILY 11/16/24 [History] omeprazole 40 mg capsule,delayed release 40 mg PO QDAY 11/16/24 [History] ondansetron 8 mg disintegrating tablet 8 mg PO TID PRN 11/16/24 [History] pramipexole 1 mg tablet 1 mg PO QHS 11/16/24 [History] semaglutide 1 mg/dose (4 mg/3 mL) subcutaneous pen injector (Ozempic) 1 mg subcut WEEKLY 11/16/24 [History] tamsulosin 0.4 mg capsule 0.4 mg PO QHS 11/16/24 [History] CIPRO PRESCRIBED NORCO PRESCRIBED Discharge Disposition Assessment: SEE HOSPITAL COURSE Discharge Plan Discharge Plan Hospital Course: This is a 69-year-old with history of diabetes who has had left fifth toe ray amputation in the past. He presented with nonhealing wound to the lateral left foot. Creatinine was too high for CT angiogram therefore he underwent on table arteriogram showing complete occlusion of the takeoff of the left anterior tibial artery which was the angiosome involved. There was reconstitution of the distal anterior tibial artery. He underwent atherectomy and balloon angio plasty of this. He was taken to the operating suite yesterday where he underwent debridement of the osteomyelitis of the left foot with placement of antibiotic beads. He is to be discharged home today on p.o. antibiotics and p.o. pain medication. He will follow-up with podiatry in 1 week. I will see him in 2 weeks. Patient Disposition: 01 HOME, SELF-CARE Condition: Stable Health Concerns: Post Hospitalization: new medications and changes needed to prevent readmission or further decline. Pt educated and given instructions on all concerns. Care Plan Goals: Problem: Infection Goal: Temperature within normal limits. Resolved infection. Instructions: Follow provided instructions. Follow up with primary physician as directed. Contact primary care physician or report to the closest Emergency Room if condition worsens. Plan of Treatment: Continue with present treatment and follow up plan. Pt is to keep follow up appointment as instructed and take medications as ordered. Assessment: SEE HOSPITAL COURSE Prescription drug monitoring program results: PDMP reviewed and no concerns identified Prescriptions: Continued Ozempic 1 mg/dose (4 mg/3 mL) pen injector 1 mg SUBCUT WEEKLY Patient Comments: [NO ORIGINAL SIG] furosemide 40 mg tablet 40 mg PO BID clonazepam 0.5 mg tablet 1 mg PO QHS clonazepam 0.5 mg tablet 0.5 mg PO QAM clopidogrel 75 mg tablet 75 mg PO QDAY amlodipine 5 mg tablet 5 mg PO QAM sulfamethoxazole-trimethoprim 800-160 mg tablet 1 tab PO BID omeprazole 40 mg capsule,delayed release(DR/EC) 40 mg PO QDAY pramipexole 1 mg Tablet 1 mg PO QHS Rx Instructions: take 1 tablet po 2-3 hours before bedtime ondansetron 8 mg tablet,disintegrating 8 mg PO TID PRN Fiasp FlexTouch U-100 Insulin 100 unit/mL (3 mL) insulin pen 12 unit SUBCUT TID PRN Patient Comments: [NO ORIGINAL SIG] Rx Instructions: inject 12 units TID- morning, noon and evening tamsulosin 0.4 mg capsule 0.4 mg PO QHS dicyclomine 20 mg tablet 20 mg PO BID insulin glargine [Basaglar KwikPen U-100 Insulin] 100 unit/mL (3 mL) Insulin Pen 36 unit SUBCUT DAILY Orders to Discharge Patient Discharge Orders: Discharge (Routine); Ordered 11/18/24 Ordered By: Villa Braga Follow ups/Referrals Follow ups/Referrals: Best Page [CONSULTING PHYSICIAN] - 11/25/24 9:00 am Villa Braga [Primary Care Provider] - 11/29/24 1:30 pm Instructions Instructions: Bone Infection (Osteomyelitis) in Adults: What to Know, Wound Infection, [id number], Endovascular Therapy for Peripheral Vascular Disease: What to Know After, Incision and Drainage, Care After Activity Restrictions/Additional Instructions: Leave dressing intact keep clean and dry. Take medication as directed. Notify MD with any concerns. Stand Alone Forms: Find Help Web Site, Post Hospital Follow Up Care
== END 2024-11-18 12:15 | disposition home or self-care (01) ==
LOC: MED/SURG
PROVIDERS: ADMIT Surgery; ATTEND Surgery
PROC: DEBRIDE (2024-11-17 11:45)
DX: L89.522 Pressure ulcer of left ankle, stage 2; E11.65 Type 2 diabetes mellitus with hyperglycemia; X58.XXXA Exposure to other specified factors, initial encounter; S91.302A Unspecified open wound, left foot, initial encounter; I25.810 Atherosclerosis of coronary artery bypass graft(s) without angina pectoris; F41.8 Other specified anxiety disorders; M86.672 Other chronic osteomyelitis, left ankle and foot; K21.9 Gastro-esophageal reflux disease without esophagitis; R26.89 Other abnormalities of gait and mobility; E78.5 Hyperlipidemia, unspecified; Z59.89 Other problems related to housing and economic circumstances; E11.621 Type 2 diabetes mellitus with foot ulcer; I10 Essential (primary) hypertension; Z89.422 Acquired absence of other left toe(s); I70.222 Atherosclerosis of native arteries of extremities with rest pain, left leg

== ENCOUNTER 2025-02-04 10:57 | Inpatient (IN) ==
[2025-02-04] MEDS: NS 1,000 ML IV 1,000 ML ONE (11:45)
[2025-02-04] MEDS: NOZIN NASAL SANITIZER TP ONE (11:45)
[2025-02-04] MEDS: DIPRIVAN VIAL 0 ML ONE (12:51)
[2025-02-04] MEDS: PRECEDEX INJ VIAL ONE (12:51)
--- NOTE | 2025-02-04 14:43 | EKG ---
Test Reason : SOB Blood Pressure : */* mmHG Vent. Rate : 81 BPM Atrial Rate : 81 BPM P-R Int : 216 ms QRS Dur : 86 ms QT Int : 350 ms P-R-T Axes : -11 -11 -61 degrees QTc Int : 406 ms Sinus rhythm with 1st degree AV block horrible baseline artifact Inferior infarct , age undetermined Abnormal ECG When compared with ECG of 31-JAN-2025 11:32, Inferior infarct is now present Non-specific change in ST segment in Inferior leads ST now depressed in Anterior leads Nonspecific T wave abnormality, worse in Inferior leads Confirmed by Diallo Aquino MD ([id number]) on 02/05/2025 7:07:49 AM Referred By: Confirmed By: Diallo Aquino MD
[2025-02-04] MEDS: REGLAN INJ 10 MG VIAL ONE (14:48)
[2025-02-04] MEDS: ZOFRAN INJ 4 MG VIAL ONE (14:48)
[2025-02-04] MEDS: FENTANYL VIAL INJ 100 mcg ONE (14:48)
[2025-02-04] MEDS: BETADINE SOLN ONE (14:48)
[2025-02-04] MEDS: VERSED ONE (14:48)
[2025-02-04] MEDS: PEPCID 20 MG VIAL ONE (14:48)
[2025-02-04] MEDS: MARCAINE 0.25% INJ ONE (15:00)
[2025-02-04] MEDS: NS 100 ML IV 100 ML ONE (15:25)
[2025-02-04] MEDS: ANCEF VIAL 1 GRAM ONE (15:25)
[2025-02-04] MEDS ORDERED: TYLENOL 325 MG TAB PO PRN (15:36)
[2025-02-04] MEDS: NS 1,000 ML IV 1,000 ML IV SCH (16:15)
[2025-02-04] MEDS: ZOFRAN INJ 4 MG VIAL IVP PRN (16:15)
[2025-02-04] MEDS: DILAUDID INJ IVP PRN (16:15)
[2025-02-04] MEDS: VANCOMYCIN IV *PREMIX 1 G/200 ML BAG 1 G/200 ML PIGGYBACK IV SCH (16:38)
[2025-02-04] MEDS: COLACE CAP 100 MG PO SCH (20:44)
[2025-02-05] MEDS: NORCO 5/325 MG TAB PO PRN ×2 (02:44→16:27)
[2025-02-05] MEDS ORDERED: NovoLIN R (or HumuLIN R) SUBCUT PRN (04:19)
[2025-02-05 05:44] LABS: BLOOD UREA NITROGEN 16 mg/dL (7-18); CALCIUM 8.9 mg/dL (8.5-10.1); CARBON DIOXIDE 29.2 mmol/L (21-32); CHLORIDE 102 mmol/L (98-107); COR NA(FOR HYPERGLY) 141 mmol/L (136-145); CREATININE 1.32 mg/dL (0.70-1.30); GLUCOSE 124 mg/dL (65-99); SODIUM 140 mmol/L (136-145); eGFR NON BLACK RACES 57 (>60)
[2025-02-05 06:13] LABS: HEMOGLOBIN 11.1 g/dL (13.5-18.0); MEAN PLATELET VOLUME 6.5 fL (7.4-11.0); RED CELL DISTRIBUTION WIDTH 15.5 % (11.6-16.5)
[2025-02-05 06:18] LABS: BASOPHILS % (AUTO) 0.7 % (0.2-1.0); EOSINOPHILS # (AUTO) 0.2 x10^3/uL (0.0-0.2); HEMATOCRIT 31.6 % (42.0-54.0); LYMPHOCYTES # (AUTO) 0.8 X10^3/uL (1.3-2.9); LYMPHOCYTES % (AUTO) 13.4 % (21.0-51.0); MEAN CORPUSCULAR HEMOGLOBIN 27.8 pg (27.0-34.0); MEAN CORPUSCULAR VOLUME 79.6 fL (80.0-100.0); MONOCYTES # (AUTO) 0.4 x10^3/uL (0.3-0.8); NEUTROPHILS # (AUTO) 4.3 x10^3/uL (2.2-4.8); NEUTROPHILS % (AUTO) 74.9 % (42.0-75.0); PLATELET COUNT 233 X10^3/uL (150.0-450.0); RED BLOOD COUNT 3.97 X10^6/uL (4.7-6.0); WHITE BLOOD COUNT 5.8 X10^3/uL (3.6-10.0)
[2025-02-05] MEDS ORDERED: KLONOPIN TAB 0.5 MG PO PRN ×2 (07:43)
[2025-02-05] MEDS: LOVENOX INJ 40 MG SYR SC SCH (09:27)
[2025-02-05] MEDS: ASPIRIN EC 81 MG PO SCH (09:27)
[2025-02-05] MEDS: ZOLOFT PO SCH (09:28)
[2025-02-05] MEDS: NEURONTIN CAP 400 MG PO SCH (09:28)
[2025-02-05] MEDS: VITAMIN C PO SCH (09:28)
[2025-02-05] MEDS: HYDROCHLOROTHIAZIDE 25 MG TAB PO SCH (09:28)
[2025-02-05] MEDS: COZAAR PO SCH (09:30)
[2025-02-05] MEDS: PriLOSEC PO SCH (09:30)
[2025-02-05] MEDS: LOPRESSOR TAB 25 MG PO SCH (09:31)
[2025-02-05] MEDS: NORVASC TAB 5 MG PO SCH (09:31)
[2025-02-05] MEDS: PLAVIX PO SCH (09:53)
--- NOTE | 2025-02-05 12:08 | NOTE.SOAP ---
Soap Note Note for Day of Date of Exam: 02/05/25 Subjective Data Subjective Data: Patient is POD#1 from partial amputation of hallux and 3rd digit on the right foot with debridement of his left foot. The last couple days patient has been having shortness of breath with increased swelling and redness in the right leg. This all occured after he injured his right hallux. He had wounds that were doing well but then during pre-op yesterday for his left foot he stated the right foot was having issues and he was having shortness of breath. Right foot was examined. Infectious process was noted. Chest xray was ordered which was normal for no acute process. EKG was ordered and reviewed with the ORTHOTIC AND PROSTHETIC TECHNICIAN and Dr. Page yesterday morning which showed Sinus rhythm with 1st degree AV block, horrible baseline artifact, inferior infarct, age undetermined per the read. The left foot reconstruction surgery was cancelled and he was consented for removal of hallux partial with flap and partial amputation 3rd digit. Cultures were obtained. Pathology was sent. Patient was admitted with IV vancomycin started. His vitals this morning are normal. His labs are otherwise normal. Patient is doing well. He has been having some shortness of breath, chest pain, and sweating last couple days. Objective Data Objective Data: Right Foot Exam: Surgical incisions over the partial hallux amputation and third digit amputation are healing well. No signs of drainage or pus. CFT WNL to pulps of both flaps. The redness and swelling have gone down drastically in the right leg. Believe infection is under control. Culture shows no organisms on gram stain. Left foot Exam: Wound present to lateral midfoot measures 2 cm x 0.6 cm x 0.3 cm with granular base. No drainage. No exudate. No acute signs of infection. Redressed both with sterile dressings. Assessment Assessment: POD#1 partial third and partial hallux amputation, right and debride ment wound, left Plan Plan: - Vitals are normal. Labs are normal. - CXR shows no acute process noted. - EKG shows Sinus rhythm with 1st degree AV block, horrible baseline artifact, inferior infarct, age undetermined. - Redressed both feet today. The swelling in the right foot has gone down drastically and so has the swelling. The incisions are intact. The left foot wound looks good. Believe infection process is controlled. - Has been on Vancomycin. - The patient has been experiencing some chest pain, shortness of breath, and sweating for 4-5 days prior. His vitals look stable but his pulse oxygen is in 92-94s without oxygen. I discussed with patient that some of this could be from infectious process but I worry that with his multiple comorbidities he may have an old infarct. CXR is normal. EKG is abnormal but is age undetermined. He isnt tachycardic so I do not think he has a PE and he is on plavix chronically. I discussed Id like to monitor him overnight with possible discharge in morning. I informed Dr. Haq of this. - Will re-examine patient in the morning.
--- NOTE | 2025-02-05 15:00 | VAS ---
EXAM: LOWER EXT VENOUS, UNILATERAL HISTORY: ELEVATED D-DIMER, R/O DVT; . COMPARISON: None. TECHNIQUE: Ultrasound of the deep venous vasculature of the bilateral lower extremities was performed. Color and spectral doppler imaging was utilized. FINDINGS: The deep veins of the lower extremities are normal in size and configuration. No intraluminal filling defects are seen on grayscale or color flow imaging. The veins compress normally. Doppler waveforms are normal at rest and with augmentation. IMPRESSION: No evidence of deep venous thrombus in the lower extremities bilaterally. THIS IS AN ELECTRONICALLY VERIFIED FINAL REPORT 02/05/2025 2:57 PM - Electronically signed by Joaquim Alexis MD
[2025-02-05] MEDS: CATAPRES TAB 0.1 MG PO ONE (17:40)
[2025-02-05] MEDS ORDERED: SNACK - Diabetic Appropriate PO SCH (20:00)
[2025-02-05] MEDS: MIRAPEX TAB 1 MG PO SCH (20:19)
[2025-02-05] MEDS: FLOMAX PO SCH (20:19)
[2025-02-05] MEDS ORDERED: PATIENT'S HOME MEDICATION (Insulin Glargine [Basaglar Kwikpen U-100 Insulin] 100 unit/mL ( SUBCUT SCH (22:00)
[2025-02-05] MEDS: LANTUS SC SCH (22:02)
[2025-02-06 06:12] LABS: BASOPHILS % (AUTO) 0.9 % (0.2-1.0); EOSINOPHILS # (AUTO) 0.3 x10^3/uL (0.0-0.2); HEMOGLOBIN 11.3 g/dL (13.5-18.0); LYMPHOCYTES # (AUTO) 0.8 X10^3/uL (1.3-2.9); LYMPHOCYTES % (AUTO) 15.2 % (21.0-51.0); MEAN CORPUSCULAR HEMOGLOBIN 28.2 pg (27.0-34.0); MEAN CORPUSCULAR HGB CONC 35.2 g/dL (33.0-35.0); MEAN PLATELET VOLUME 6.3 fL (7.4-11.0); MONOCYTES # (AUTO) 0.4 x10^3/uL (0.3-0.8); MONOCYTES % (AUTO) 7.5 % (0.0-13.0); NEUTROPHILS # (AUTO) 3.7 x10^3/uL (2.2-4.8); NEUTROPHILS % (AUTO) 71.4 % (42.0-75.0); PLATELET COUNT 249 X10^3/uL (150.0-450.0); RED CELL DISTRIBUTION WIDTH 15.6 % (11.6-16.5); WHITE BLOOD COUNT 5.1 X10^3/uL (3.6-10.0)
--- NOTE | 2025-02-06 08:26 | NOTE.SOAP ---
Soap Note Note for Day of Date of Exam: 02/06/25 Subjective Data Subjective Data: POD#2 from partial amputation of the hallux and 3rd digit of the right foot with wound debridement of the left foot. He had been having chest pain, sob, and sweating for couple days prior to admittance. D-dimer was .9, DVT US was negative. Trops have been within range. This morning his symptoms are much better than yesterday. Objective Data Objective Data: Bilateral Lower Extremity Exam: Dressing on the right needed re-inforced this morning with RUTH bandage. Left dressing intact. Assessment Assessment: POD#2 partial amputation of the hallux and third digit of the right with wound debridement of the left Plan Plan: - PWBing in post-op shoe. - Symptoms are much better. D-dimer slightly elevated. DVT US negative. Trops are normal. - Okay for discharge home today. - He will follow-up with Dr. Page this week. - Rx for antibiotics placed in chart.
[2025-02-06 12:08] VITALS: BP 156/88; PULSE 67; RESP 20; TEMP 98; O2SAT 97
[2025-02-06] MEDS ORDERED: SNACK - Diabetic Appropriate PO SCH (20:00)
--- NOTE | 2025-02-08 08:39 | RAD ---
EXAM: CHEST, 1 VIEW HISTORY: sob; COMPARISON: No relevant prior studies were available for comparison at the time of interpretation. TECHNIQUE: CHEST, 1 VIEW FINDINGS: Chest: Lines and tubes: None Mediastinum: Median sternotomy wires are present. The cardiac shadow is enlarged. Pulmonary vessels: No pulmonary vascular congestion. Lung amezcua: No suspicious airspace opacity. Pleura: No effusion. No pneumothorax. Bones and soft tissues: No acute osseous or soft tissue abnormality. IMPRESSION: 1. No acute cardiopulmonary abnormality THIS IS AN ELECTRONICALLY VERIFIED FINAL REPORT 02/08/2025 8:35 AM - Electronically signed by Benedict Madden MD
== END 2025-02-06 12:30 | disposition home or self-care (01) | DRG 464 ==
LOC: SURG1 10:57 → MED/SURG 15:41
PROVIDERS: ADMIT Obstetrics & Gynecology Obstetrics; ATTEND Obstetrics & Gynecology Obstetrics
PROC: DEBRIDE (2025-02-04 14:00)
DX: E11.65 Type 2 diabetes mellitus with hyperglycemia; R06.02 Shortness of breath; I44.0 Atrioventricular block, first degree; B96.4 Proteus (mirabilis) (morganii) as the cause of diseases classified elsewhere; Z16.23 Resistance to quinolones and fluoroquinolones; Z16.29 Resistance to other single specified antibiotic; R94.4 Abnormal results of kidney function studies; R94.31 Abnormal electrocardiogram [ECG] [EKG]; Z16.19 Resistance to other specified beta lactam antibiotics; R79.1 Abnormal coagulation profile; L97.423 Non-pressure chronic ulcer of left heel and midfoot with necrosis of muscle; L03.031 Cellulitis of right toe; Z79.4 Long term (current) use of insulin; M86.171 Other acute osteomyelitis, right ankle and foot; Z16.11 Resistance to penicillins